=== PATIENT | male | born 1995 | race Caucasian/White ===

== ENCOUNTER 2020-05-05 16:42 | Emergency (ER) | payer SELFPAY ==
[~2020-05-05] VITALS: Ht 188 cm; Wt 107.0 kg
[2020-05-05 17:53] VITALS: BP 108/69
[2020-05-05] MEDS ORDERED: HYDROCODONE/ACETAMINOPHEN 5/325MG TABLET PO ONE (18:00)
[2020-05-05] MEDS ORDERED: CEFAZOLIN SODIUM 1000MG/VIAL IM ONE (18:00)
== END 2020-05-05 18:35 | disposition home or self-care (01) ==
LOC: ER 16:42
DX: L02.01 Cutaneous abscess of face (principal); R03.0 Elevated blood-pressure reading, without diagnosis of hypertension; L70.9 Acne, unspecified
CPT/HCPCS: 96372; 99283; J0690

== ENCOUNTER 2020-05-10 07:17 | Emergency (ER) | payer MEDICAID ==
[~2020-05-10] VITALS: Ht 185.4 cm; Wt 104.0 kg
[2020-05-10] MEDS ORDERED: HYDROCODONE/ACETAMINOPHEN 5/325MG TABLET PO STA (08:42)
[2020-05-10] MEDS ORDERED: KETOROLAC 60MG/2ML VIAL IM STA (08:42)
[2020-05-10] MEDS ORDERED: LIDOCAINE 1%/EPI 1:100,000 10 ML VIAL IJ ONE (08:45)
[2020-05-10] MEDS ORDERED: BACITRACIN ZINC OINT UDPKT TOP ONE (08:45)
[2020-05-10] MEDS ORDERED: LIDOCAINE 1%/EPI 1:100,000 10 ML VIAL INFIL ONE (09:00)
[2020-05-10 09:38] VITALS: BP 132/75
== END 2020-05-10 10:53 | disposition home or self-care (01) ==
LOC: ER 07:17
DX: L02.31 Cutaneous abscess of buttock (principal)
CPT/HCPCS: 10060; 96372; 99283; J1885; J3490

== ENCOUNTER → 2024-02-02 | Emergency (ER) | payer MEDICAID, OTHER ==
[~2024-02-02] VITALS: Ht 182.9 cm; Wt 100.0 kg
[2024-02-02 17:42] VITALS: O2SAT 98
[2024-02-02 18:15] VITALS: BP 110/65; PULSE 70; RESP 16; TEMP 36.05844; O2SAT 100
== END ==
LOC: ER 17:38
DX: R45.1 Restlessness and agitation (principal); J45.909 Unspecified asthma, uncomplicated; Z00.00 Encounter for general adult medical examination without abnormal findings
CPT/HCPCS: 99283